=== PATIENT | male | born 1990 | race Caucasian/White ===

== ENCOUNTER 2018-09-18 15:57 | Emergency (ER) | payer OTHER ==
--- NOTE | 2018-09-18 16:26 | PDOC ---
History of Present Illness - General History Source: Patient Exam Limitations: No Limitations - History of Present Illness Initial Comments: 09/18/18 17:02 The patient is a 28 year old male with no significant past medical history who presents to the ED with 2 days of urinary frequency. Patient states he urinates every hour and still has the urge to go. Patient notes he produces a sufficient volume of urine every hour and it is not satisfying. He went to urgent care earlier today, had a UA with normal results, and was sent to the ED for further evaluation. Denies dysuria. Denies foul smelling urine. Denies discoloration in the urine. Denies penile discharge. Denies abdominal pain. Denies any other symptoms. Social hx: The patient is , monogamous and has no extra sexal encouters apart from his . is asymptomatic and is also presumably monogamous. <Brian Lawrence - Last Filed: 09/18/18 17:25> <Brennan James - Last Filed: 09/18/18 17:28> - General Chief Complaint: Urinary Problem Stated Complaint: DYSURIA Time Seen by Provider: 09/18/18 16:26 Past History <Brian Lawrence - Last Filed: 09/18/18 17:25> <Brennan James - Last Filed: 09/18/18 17:28> - Past Medical History Allergies/Adverse Reactions: Allergies Allergy/AdvReac Type Severity Reaction Status Date / Time No Known Allergies Allergy Verified 09/18/18 15:59 Home Medications: Ambulatory Orders Bupropion HCl [Wellbutrin Xl] 300 mg PO DAILY 09/18/18 clonazePAM [Klonopin -] 0.5 mg PO PRN PRN 09/18/18 Review of Systems - Review of Systems Able to Perform ROS?: Yes Comments:: 09/18/18 17:03 CONSTITUTIONAL: Absent: fever, chills, diaphoresis, generalized weakness, malaise, loss of appetite HEENT: Absent: rhinorrhea, nasal congestion, throat pain, throat swelling, difficulty swallowing, mouth swelling, ear pain, eye pain, visual Changes CARDIOVASCULAR: Absent: chest pain, syncope, palpitations, irregular heart rate, lightheadedness , peripheral edema RESPIRATORY: Absent: cough, shortness of breath, dyspnea with exertion, orthopnea, wheezing, stridor, hemoptysis GASTROINTESTINAL: Absent: abdominal pain, abdominal distension, nausea, vomiting, diarrhea, constipation, melena, hematochezia GENITOURINARY: + frequency Absent: dysuria, urgency, hesitancy, hematuria, flank pain, genital pain MUSCULOSKELETAL: Absent: myalgia, arthralgia, joint swelling SKIN: Absent: rash, itching, pallor HEMATOLOGIC/IMMUNOLOGIC: Absent: easy bleeding, easy bruising, lymphadenopathy, frequent infections ENDOCRINE: Absent: unexplained weight gain, unexplained weight loss, heat intolerance, cold intolerance NEUROLOGIC: Absent: headache, focal weakness or paresthesias, dizziness, unsteady gait, seizure, mental status changes, bladder or bowel incontinence PSYCHIATRIC: Absent: anxiety, depression, suicidal or homicidal ideation, hallucinations. All Other Systems: Reviewed and Negative <Brian Lawrence - Last Filed: 09/18/18 17:25> *Physical Exam - Vital Signs Last Vital Signs Temp Pulse Resp BP Pulse Ox 98.8 F 90 20 126/92 99 09/18/18 15:58 09/18/18 15:58 09/18/18 15:58 09/18/18 15:58 09/18/18 15:58 - Physical Exam Comments: 09/18/18 17:02 GENERAL: Well developed, well nourished. Awake and alert. No acute distress. HEENT: Normocephalic, atraumatic. PERRLA, EOMI. No conjunctival pallor. Sclera are non- icteric. Moist mucous membranes. Oropharynx is clear. NECK: Supple. Full ROM. No JVD. Carotid pulses 2+ and symmetric, without bruits. No thyromegaly. No lymphadenopathy. CARDIOVASCULAR: Regular rate and rhythm. No murmurs, rubs, or gallops. Distal pulses are 2+ and symmetric. PULMONARY: No evidence of respiratory distress. Lungs clear to auscultation bilaterally. No wheezing, rales or rhonchi. ABDOMINAL: No bladder distension or tenderness to percussion or palpation. Soft. Non-tender. Non-distended. No rebound or guarding. No organomegaly. Normoactive bowel sounds. GENITOURINARY: No urethral discharge or lesions. No genital rash. No hernias. Testes without mass or tenderness. MUSCULOSKELETAL Normal range of motion at all joints. No bony deformities or tenderness. No CVA tenderness. EXTREMITIES: No cyanosis. No clubbing. No edema. No calf tenderness. SKIN: Warm and dry. Normal capillary refill. No rashes. No jaundice. NEUROLOGICAL: Alert, awake, appropriate. Cranial nerves 2-12 intact. No deficits to light touch and temperature in face, upper extremities and lower extremities. No motor deficits in the in face, upper extremities and lower extremities. Normoreflexic in the upper and lower extremities. Normal speech. Toes are down- going bilaterally. Gait is normal without ataxia. PSYCHIATRIC: Cooperative. Good eye contact. Appropriate mood and affect. <Brian Lawrence - Last Filed: 09/18/18 17:25> Moderate Sedation - Procedure Monitoring Vital Signs: Procedure Monitoring Vital Signs Temperature 98.8 F 09/18/18 15:58 Pulse Rate 90 09/18/18 15:58 Respiratory Rate 20 09/18/18 15:58 Blood Pressure 126/92 09/18/18 15:58 O2 Sat by Pulse Oximetry (%) 99 09/18/18 15:58 <Brian Lawrence - Last Filed: 09/18/18 17:25> ED Treatment Course - ADDITIONAL ORDERS Additional order review: Laboratory Results 09/18/18 09/18/18 16:54 16:40 POC Glucometer 102 Urine Color Yellow Urine Appearance Clear Urine pH 7.0 Ur Specific Olar 1.015 Urine Protein Negative Urine Glucose (UA) Negative Urine Ketones Negative Urine Blood Negative Urine Nitrite Negative Urine Bilirubin Negative Urine Urobilinogen 0.2 Ur Leukocyte Esterase Negative 09/18/18 16:54 POC Glucometer 102 <Brian Lawrence - Last Filed: 09/18/18 17:25> Medical Decision Making - Medical Decision Making 09/18/18 17:18 Urinalysis is completely clear. Physical exam completely normal. Blood glucose 102. Patient has a history of anxiety and this may be a vicious cycle of drinking more to compensate for frequent urination. Attempt to reassure patient and suggest follow-up with the urologist for further evaluation and treatment. <Brennan James - Last Filed: 09/18/18 17:28> *DC/Admit/Observation/Transfer - Attestations Scribe Attestion: 09/18/18 17:03 Documentation prepared by Brian Lawrence, acting as medical transcriptionist for Brennan James MD <Brian Lawrence - Last Filed: 09/18/18 17:25> - Discharge Dispostion Decision to Admit order: No <Brennan James - Last Filed: 09/18/18 17:28> Diagnosis at time of Disposition: Polyuria - Discharge Dispostion Disposition: HOME Condition at time of disposition: Stable - Referrals Referrals: Sean Anthony MD., MD [Staff Physician] - 1 week - Patient Instructions Additional Instructions: There is no sign of urinary tract infection Your blood sugar is normal, and therefore diabetes is not the cause of your frequent urination. Tests for sexually transmitted diseases are pending and will take 2 days for the results to be available. In the meantime, try to restrict your fluids and see if this will normalize urination. If not successful, consider urology consultation.
[2018-09-18 16:29] VITALS: BP 126/92; PULSE 90; TEMP 98.8; BMI 30.7
[2018-09-18 16:50] LABS: URINE APPEARANCE Clear; URINE BILIRUBIN Negative (NEGATIVE); URINE COLOR Yellow; URINE GLUCOSE (UA) Negative (NEGATIVE); URINE KETONE Negative (NEGATIVE); URINE LEUK ESTERASE Negative (NEGATIVE); URINE NITRITE Negative (NEGATIVE); URINE PROTEIN Negative (NEGATIVE); URINE UROBILINOGEN 0.2 (0.2-1.0)
== END 2018-09-18 17:38 | disposition home or self-care (01) ==
LOC: FER 15:57
DX: R35.8 Other polyuria (principal)
CPT/HCPCS: 36415; 81003; 82962; 87086; 87491; 87591; 99281-25